=== PATIENT | female | born 1995 | race American Indian/Alaskan Native ===

== ENCOUNTER 2019-05-28 16:59 | Emergency (ER) | payer SELFPAY ==
[2019-05-28 18:13] VITALS: BP 118/64
--- NOTE | 2019-05-28 18:16 | Emergency Department Report ---
Chief Complaint: Upper Respiratory Infection Stated Complaint: FLU LIKE SYM Time Seen by Provider: 05/28/19 18:12 - HPI History of Present Illness: pt presents with URI symptoms that began about 6 days ago nasal congestion, body aches, rhinorrhea, headache no fever no vomiting, no diarrhea no SOB no PMHx no allergies to meds has tried taking theraflu, dayquil, mucinex, sinus pressure vitals are normal on exam: normal oropharynx pale turbinates normal TMs and canals breath sounds are clear bilaterally without w/r/r No clinical signs or symptoms of bacterial sinusitis Patient's symptoms and examination consistent with viral sinusitis versus viral URI discussed supportive care and symptomatic treatment with pt. pt is presenting with a non medical emergency at this time, medical screening exam performed, will refer pt to primary care doctor advised pt please increase your fluid intake over the next several days. use flonase nasal spray. use claritin or zyrtec. may take tylenol or ibuprofen for pain. may use a nasal wash, humidifier. follow up with a primary care doctor in the next 2-3 days. return to the emergency room for any new or worsening symptoms. MSE screening note: Focused history and physical exam performed. ED Disposition for MSE Clinical Impression: Upper respiratory infection Qualifiers: URI type: unspecified URI Qualified Code(s): J06.9 - Acute upper respiratory infection, unspecified Disposition: Z MED SCREENING EXAM-LEFT Is pt being admited?: No Does the pt Need Aspirin: No Condition: Stable Instructions: Upper Respiratory Infection (ED), Viral Syndrome (ED) Additional Instructions: please increase your fluid intake over the next several days. use flonase nasal spray. use claritin or zyrtec. may take tylenol or ibuprofen for pain. may use a nasal wash, humidifier. follow up with a primary care doctor in the next 2-3 days. return to the emergency room for any new or worsening symptoms. Referrals: GURVINDER VAUGHAN MD [Staff Physician] - 2-3 Days [facility] [Outside] - 2-3 Days Time of Disposition: 18:17 Print Language: CZECH
== END 2019-05-28 19:00 | disposition left against medical advice (07) ==
LOC: ED 16:59
DX: J06.9 Acute upper respiratory infection, unspecified (principal)